=== PATIENT | male | born 1990 | race Caucasian/White ===

== ENCOUNTER 2020-05-26 19:02 | Emergency (ER) | payer SELFPAY ==
[2020-05-26 19:11] VITALS: BP 138/87; PULSE 69; RESP 12; TEMP 37.5; O2SAT 99; BMI 30.7
[2020-05-26] MEDS: lidocaine 1% INJ 20 mL INJECTION (19:25)
--- NOTE | 2020-05-26 19:28 | W.ED.WOUNDLC ---
HPI - Wound/Laceration General: Chief Complaint: Wound/Laceration Stated Complaint: hand lac Time Seen by Provider: 05/26/20 19:18 Source: patient Mode of arrival: ambulatory Limitations: no limitations History of Present Illness: HPI narrative: Laceration to the dorsal right hand. 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 Patient has good range of motion of the hand. Patient has a 2-1/2 cm laceration to the left dorsal hand just proximal to the thumb. Review of Systems General: Reports: 10 or more systems reviewed and unremarkable except in HPI and below Skin/Breast: Reports: other (Laceration left hand) Physical Exam Const: COMMON NORMALS: no acute distress and patient oriented x3 GENERAL APPEARANCE: cooperative HENMT: COMMON NORMALS: normocephalic and Normal external nose present HEAD & SCALP: normal to inspection and normocephalic NOSE: Normal external nose present MOUTH: Normal oral and palatal mucosa present THROAT: posterior oropharynx normal Eye: GENERAL EYE: appearance normal, both eyes and all related structures Neck/C-Spine: COMMON NORMALS: full ROM Lymph: LYMPHATIC: no lymphadenopathy noted Chest: COMMONS NORMALS: normal inspection of the chest Resp: COMMON NORMALS: normal respiratory effort EFFORT & INSPECTION: Yes able to speak in complete sentences Cardio: COMMON NORMALS: regular rate and regular rhythm RATE: regular rate RHYTHM: regular rhythm GI: COMMON NORMALS: non-tender Back/Pelvis: COMMON NORMALS: thoracic and lumbar spine normal to inspection Extremity: COMMON NORMALS: normal to inspection Neuro: COMMON NORMALS: patient oriented x3 and moves all extremities Psych: COMMON NORMALS: mental status grossly normal and cooperative Skin: NARRATIVE SKIN EXAM: 2-1/2 cm laceration to the dorsal left hand, linear, no foreign body, normal tendon function. Procedures Laceration Laceration 1: Site: hand Side (If applicable): left Size (cm): 2.5 Description: linear Depth: simple, single layer Local Anesthetic: lidocaine 1% Amount of anesthesia used (mL): 3 Pre-repair: wound explored Skin layer closed with: nylon Size (cm): 4-0 Number of sutures: 4 Technique: simple, interrupted (3) and horizontal mattress (1) Course Vital Signs: Vital signs: Vital Signs Temperature 99.5 F 05/26/20 19:11 Pulse Rate 69 05/26/20 19:11 Respiratory Rate 12 05/26/20 19:11 Blood Pressure 138/87 05/26/20 19:11 Pulse Oximetry 99 05/26/20 19:11 MDM - Wound/Laceration MDM Narrative: Medical decision making narrative: Patient presents with injury to the left dorsal hand. On exam patient has a 2-1/2 cm laceration to the dorsal left hand just proximal to the thumb. Patient has good range of motion of the thumb without any tendon deficit. Distal thumb has normal cap refill and sensation. Differential diagnosis includes but not limited to laceration, foreign body, neurovascular injury. No signs of neurovascular injury or foreign body was noted. Wound was repaired with sutures. Patient tolerated well. Reviewed postprocedure care and recommendations for follow-up or return. Patient reports understanding. Discharge Plan Discharge Patient Disposition: Home Clinical Impression: Laceration Condition: Stable Discharge Orders: Discharge Order (Routine); Ordered 05/26/20 Ordered By: Maykel Nolen Discharge Diet: Usual diet Discharge Activity: Increase activity as tolerated Patient Instructions: Suture Care (ED) Activity Restrictions/Additional Instructions: Keep wound clean and dry for the next 48 hours. It is always important to keep it clean and dry for the full amount of the wound site but is very important for the first 48 hours. After that if you get it wet pat it dry and try to keep it covered. Monitor for signs of infection which is redness greater than the thumbs breath away from the center of the wound or fever. Follow-up for suture removal in 7 to 10 days. Return to the emergency department as needed. Coding Level of Care Code ED Enrollment Clerk for Evan Morton Exam Comprehensive
[2020-05-26 19:40] VITALS: PULSE 78; RESP 18; O2SAT 98
== END 2020-05-26 19:41 | disposition home or self-care (01) ==
PROVIDERS: Emergency Provider Nurse Practitioner Family
DX: S61.412A Laceration without foreign body of left hand, initial encounter (principal); W26.0XXA Contact with knife, initial encounter
CPT/HCPCS: 12001; 12345; 99281; 99282

== ENCOUNTER 2020-05-31 19:17 | Emergency (ER) | payer SELFPAY ==
[2020-05-31 19:19] VITALS: BP 137/87; PULSE 74; RESP 16; TEMP 36.6; O2SAT 98
--- NOTE | 2020-05-31 20:09 | W.ED.GENADLT ---
HPI - General Adult General: Chief complaint: General Medical Stated complaint: left hand lac/infection Time Seen by Provider: 05/31/20 20:09 History of Present Illness: HPI narrative: Patient is a 30-year-old male comes to the ED for reevaluation of left hand laceration healing. Patient was seen here on 05/26 for a laceration and 4 sutures were placed. Patient is now complaining of having redness and increased pain around suture site is worried it could be getting infected. Patient rates pain on left hand currently an 8 out of 10 but does not want any pain meds while here in the ED. Patient stated he did not want a tetanus shot today. Associated symptoms: Deny chest pain, dyspnea, headache(s), nausea, rash, palpitations or vomiting Review of Systems Const: Denies: fever(s), chills or fatigue Eyes: Denies: change in vision or eye discomfort ENMT: Denies: throat pain, odynophagia, nasal discharge or nasal congestion Card: Denies: chest pain, palpitations, edema, swelling of feet/ankles, dyspnea on exertion or orthopnea Resp: Denies: dyspnea, productive cough or non-productive cough GI: Denies: abdominal pain, nausea, vomiting, diarrhea, constipation or hematochezia : Denies: flank pain, difficulty urinating, dysuria or hematuria Musc: Denies: neck pain, back pain or extremity swelling Skin/Breast: Reports: new lesions (Patient's laceration site with sutures on left hand is red this and increased tenderness. No drainage seen.); Denies: rash Neuro: Denies: headache(s), numbness in extremities or weakness in extremities Physical Exam Const: COMMON NORMALS: no acute distress, patient oriented x3, healthy appearing and alert GENERAL APPEARANCE: cooperative and comfortable HENMT: COMMON NORMALS: normocephalic HEAD & SCALP: normocephalic MOUTH: Normal oral and palatal mucosa present THROAT: posterior oropharynx normal and uvula midline Eye: COMMON NORMALS: Equal, round and reactive pupils present PUPIL: Yes Equal, round and reactive pupils present Neck/C-Spine: COMMON NORMALS: supple GENERAL: Yes normal visual inspection Resp: COMMON NORMALS: normal respiratory effort, No retractions, No use of accessory muscles and clear to auscultation bilaterally AUSCULTATION: clear to auscultation bilaterally Cardio: COMMON NORMALS: regular rate, regular rhythm, S1 normal heart sound present, S2 normal heart sound present, No gallops present (Cardio), No clicks present (Cardio), No murmurs present (Cardio) and Peripheral pulses 2+ throughout RATE: regular rate RHYTHM: regular rhythm HEART SOUNDS: S1 normal heart sound present and S2 normal heart sound present PERIPHERAL PULSES: Peripheral pulses 2+ throughout GI: COMMON NORMALS: Normal to inspection, nondistended, normoactive bowel sounds present, Soft to palpation, non-tender and no masses PALPATION: Yes Soft to palpation : COMMON NORMALS: Yes no CVA tenderness BLADDER/KIDNEY EXAM: Yes no CVA tenderness Back/Pelvis: COMMON NORMALS: no CVA tenderness Extremity: GENERAL: Yes normal exam except as noted LEFT UPPER EXTREMITY: Yes hand & digits Left hand and digits: Yes inspection (Patient's laceration site has 4 sutures and is closed up. No visible drainage seen. Surrounding erythema, warmth and tenderness around laceration site.) Neuro: COMMON NORMALS: patient oriented x3 and moves all extremities SENSORIUM/ORIENTATION: Yes alert Skin: NARRATIVE SKIN EXAM: Laceration site on left hand has 4 sutures that are intact and wound is closed completely. No visible drainage seen. There is surrounding erythema, warmth and increased tenderness around laceration site. Suspicious for cellulitis developing. GENERAL SKIN EXAM: dry skin Course Vital Signs: Vital signs: Vital Signs Temperature 97.9 F 05/31/20 19:19 Pulse Rate 74 05/31/20 19:19 Respiratory Rate 16 05/31/20 19:19 Blood Pressure 137/87 05/31/20 19:19 Pulse Oximetry 98 05/31/20 19:19 MDM - General Adult MDM Narrative: Medical decision making narrative: Patient is a 30-year-old male comes to the ED with concerns of infected laceration site. Patient was seen here on May 26 for laceration on left hand and wound was closed with 4 sutures. Laceration site has 4 sutures intact and wound is closed with no visible drainage seen. Surrounding erythema, warmth and tenderness around laceration site. Patient diagnosed with cellulitis and given a prescription of Bactrim. Patient was told to return to ED or urgent care for reevaluation and suture removal in the next 3 to 5 days. Patient understood and agreed with plan. Discharge Plan Discharge Patient Disposition: Home Clinical Impression: Cellulitis of left hand Condition: Stable Prescriptions: New Bactrim DS 800-160 mg tablet 1 tab PO BID 7 Days Qty: 14 RF: 0 Discharge Orders: Discharge Order (Routine); Ordered 05/31/20 Ordered By: Kevin Tipton Discharge Diet: Regular Discharge Activity: Resume usual activity Patient Instructions: Cellulitis (ED) Activity Restrictions/Additional Instructions: Follow-up with medical provider as directed in 3-5 days for suture removal and reevaluation. Take medications as prescribed. Return to the ER or your medical provider if condition worsens. Please read and understand discharge instructions. If any questions, please ask. 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
[2020-05-31] MEDS: sulfamethoxazole-trimeth DS 160-800 mg Tablet 1 TAB PO (20:36)
[2020-05-31 20:38] VITALS: BP 139/71; PULSE 66; RESP 16; O2SAT 98
== END 2020-05-31 20:43 | disposition home or self-care (01) ==
PROVIDERS: Emergency Provider Physician Assistant
DX: L03.114 Cellulitis of left upper limb (principal)
CPT/HCPCS: 12345; 99281; 99282